=== PATIENT | male | born 1990 | race Caucasian/White ===

== ENCOUNTER 2025-08-13 04:11 | Inpatient (IN) | payer OTHER ==
[~2025-08-13] VITALS: Ht 179.1 cm; Wt 86.4 kg
[~2025-08-13 04:11] MED LIST: CEPH-558 PO; RISP3TAB77 PO; SULF-261 PO
[2025-08-13 05:27] LABS: CALCIUM, TOTAL 8.5 mg/dL (8.8-10.5); CREATININE 0.73 mg/dL (0.60-1.30); GLOMERULAR FILTR. RATE CALC > 60 mL/min (>60); GLUCOSE,RANDOM 96 mg/dL (70-110); SODIUM SERUM 140 mmol/L (136-145); UREA NITROGEN, BLOOD 12 mg/dL (7-18)
[2025-08-13 05:31] LABS: PLATELET COUNT (AUTO) 287 K/uL (150-450); RED BLOOD CELL COUNT(AUTO) 4.70 MIL/uL (4.50-5.90); RED CELL DISTRIBUTION WIDTH 13.2 % (11.5-14.5); WHITE BLOOD COUNT (AUTO) 7.3 K/uL (4.5-11.0)
[2025-08-13] MEDS ORDERED: MAGNESIUM HYDROXIDE SUSPENSION 30 ML UDCUP PO PRN (06:30)
[2025-08-13] MEDS ORDERED: ACETAMINOPHEN 325 MG TABLET PO PRN (06:30)
[2025-08-13] MEDS ORDERED: ZOLPIDEM TARTRATE 5 MG TABLET PO PRN (06:30)
[2025-08-13 13:27] VITALS: BP 133/82; PULSE 90; RESP 18; TEMP 98.2; O2SAT 100
[2025-08-13 18:06] LABS: APPEARANCE,URINE CLEAR (CLEAR); GLUCOSE, URINE (UA) NEGATIVE (NEGATIVE); LEUKOCYTE ESTERASE ,URINE NEGATIVE (NEGATIVE); NITRATE,URINE NEGATIVE (NEGATIVE); OCCULT BLOOD,URINE NEGATIVE (NEGATIVE); SPECIFIC GRAVITIY, URINE 1.011 (1.003-1.030)
[2025-08-13 19:48] VITALS: BP 122/83; PULSE 84; RESP 18; TEMP 98.1; O2SAT 97
[2025-08-14 04:13] VITALS: BP 113/82; PULSE 71; RESP 17; TEMP 98.1; O2SAT 97
[2025-08-14 08:19] VITALS: BP 116/77; PULSE 80; RESP 20; TEMP 97.8; O2SAT 97
[2025-08-14 20:36] VITALS: BP 112/75; PULSE 86; RESP 18; TEMP 97.9; O2SAT 97
[2025-08-15 04:22] VITALS: BP 105/71; PULSE 70; RESP 17; TEMP 97.9; O2SAT 96
[2025-08-15 07:15] VITALS: BP 118/81; PULSE 77; RESP 18; TEMP 98.1; O2SAT 97
[2025-08-15] MEDS ORDERED: ACET-2247 PO (10:14)
[2025-08-15] MEDS ORDERED: MAGN-169 PO (10:14)
== END 2025-08-15 15:27 | DRG 885 ==
LOC: EMS 04:14 → EDH 06:25 → 6N 08:40
PROVIDERS: ADMIT Internal Medicine; ATTEND Internal Medicine
DX: F20.9 Schizophrenia, unspecified (principal); Z79.899 Other long term (current) drug therapy
CPT/HCPCS: 80048; 81003; 85025; 99285